=== PATIENT | female | born 1990 | race Caucasian/White ===

== ENCOUNTER 2018-04-24 13:45 | Emergency (ER) | payer OTHER ==
[2018-04-24 13:58] VITALS: BP 97/49
--- NOTE | 2018-04-24 13:58 | ED Physician Documentation ---
Foot Injury - HISTORIAN Historian: patient - HPI Stated Complaint: left foot pain after bull stepped on the foot one week ago Chief Complaint: Foot Injury Onset: other (one week ago ) Where: other (home) Severity: mild Context: other (her bull stepped on it ) Modifying Factors:: pain on movement Further Comments: yes (She states it happened a week ago . She states the pain is fine with sitting still. She does bear weight but painful. No sensation disturbance. Pulses +) - ROS CONST: no problems CVS/RESP: none - PAST HX Past History: none Immunizations: UTD Allergies/Adverse Reactions: Allergies Allergy/AdvReac Type Severity Reaction Status Date / Time No Known Allergies Allergy Verified 04/24/18 13:59 - SOCIAL HX Smoking History: non-smoker Alcohol Use: none Drug Use: none - FAMILY HX Family History: none - REVIEWED ASSESSMENTS Nursing Assessment Reviewed: Yes Vitals Reviewed: Yes Progress - Progress Progress: 1450: results discussed. She is aware and agreeable to discharge plan DG ED Results Lab/Radiology - Radiology Radiology Impressions: 3 views of the left foot Clinical history: FOOT STEPPED ON BY BULL ABOUT A WEEK AGO WITH CONTINUED PAIN AND SWELLING Findings: Examination of the left foot in plantar, lateral and oblique views fails to demonstrate evidence of fracture, dislocation or other bone or joint pathology. Electronically signed on April 24, 2018 2:42:28 PM CDT by: Papi Del Cid Foot Injury Physical Exam - Physical Exam General Appearance: no acute distress, alert Foot: right foot: non-tender, normal inspection, normal range of motion, no evidence of injury, abrasions/lacerations, bone tenderness, left foot: deformity , limited range of motion, pain (weight bearing ), soft tissue tenderness, swelling, other (yellow/purple bruise on foot and ankle ), N/A: ecchymosis, infection, nail injury, nodule Gait: limited by pain Neuro: sensation nml, motor nml Vascular: no vascular compromise Tendons: tendon function nml Leg/Knee/Thigh: uninjured above ankle Skin: other (bruising noted on entire foot and heel ) Resp/CVS: chest non-tender, breath sounds nml, heart sounds nml, no resp. distress, lungs clear Abdomen: non-tender Discharge Clincal Impression: Injury of left foot Qualifiers: Encounter type: initial encounter Qualified Code(s): S99.922A - Unspecified injury of left foot, initial encounter Referrals: Josias Valdes DO [STAFF PHYSICIAN] - 2 Days Additional Instructions: 1. Keep foot elevated and Iced 2. Tramodol 50 mg every 8 hours as needed for pain 3. Follow up with PCP in 2-4 days if no improvement 4. Return to ER for concerns - pain or other concerns Condition: Stable Disposition: 01 HOME, SELF-CARE Decision to Admit: NO Date of Decison to Admit: 04/24/18 Decision Time: 14:46
--- NOTE | 2018-04-24 17:38 | Diagnostic Imaging Report ---
LIV ETIENNE [facility] [id number] [id number] Report Submission Date: April 24, 2018 2:42:28 PM CDT Patient Study Name: MIQUEL CORREIA Date: April 24, 2018 2:06:50 PM CDT Modality Type: DX Gender: F Description: LOWER EXTREMITY : 88 Institution: [facility] Physician: LIV ETIENNE 3 views of the left foot Clinical history: FOOT STEPPED ON BY BULL ABOUT A WEEK AGO WITH CONTINUED PAIN AND SWELLING Findings: Examination of the left foot in plantar, lateral and oblique views fails to demonstrate evidence of fracture, dislocation or other bone or joint pathology. Electronically signed on April 24, 2018 2:42:28 PM CDT by: Papi RING
== END 2018-04-24 14:54 | disposition home or self-care (01) ==
LOC: ED 13:45
DX: S99.922A Unspecified injury of left foot, initial encounter (principal); X58.XXXA Exposure to other specified factors, initial encounter; Y92.9 Unspecified place or not applicable; Y93.K9 Activity, other involving animal care; Y99.9 Unspecified external cause status
CPT/HCPCS: 73630; 81025; 99283